=== PATIENT | male | born 1980 | race Caucasian/White ===

== ENCOUNTER 2018-05-07 08:43 | Emergency (ER) | payer BC ==
[~2018-05-07] VITALS: Ht 1737 cm; Wt 81.6 kg
[~2018-05-07 08:43] MED LIST: AMARYL4 MG PO; AZULFIDINE500 MG PO; CRESTOR20 MG PO; CYCLOBENZAPRINE10 MG PO; DAYPRO600 M1 PO; FOLIC ACID1 MG PO; GLUCOPHAGE500 MG PO; HYDROCODONE BIT1 T11 PO; METFORMIN1000 MG PO; MOTRIN800 MG PO; PERCOCET 325 MG1 TA2 PO; ROBAXIN750 MG PO; TOBRADEX 0.1%-0.5 ML OPH; ULTRAM50 MG PO; ZITHROMAX250 MG PO
[2018-05-07] MEDS ORDERED: SEPTDS PO (12:02)
== END 2018-05-07 12:01 | disposition home or self-care (01) ==
LOC: ED 08:43
DX: S61.213A Laceration without foreign body of left middle finger without damage to nail, initial encounter (principal); Z88.0 Allergy status to penicillin; Z88.1 Allergy status to other antibiotic agents; W45.8XXA Other foreign body or object entering through skin, initial encounter; Y93.89 Activity, other specified; Y92.89 Other specified places as the place of occurrence of the external cause; Y99.8 Other external cause status

== ENCOUNTER 2018-07-10 08:23 | Emergency (ER) | payer SELFPAY ==
[~2018-07-10] VITALS: Ht 177.8 cm; Wt 79.4 kg
[~2018-07-10 08:23] MED LIST changes: +SEPTDS PO
[2018-07-10] MEDS ORDERED: FLONASE ALLERG9.9 ML NAS (10:47)
[2018-07-10] MEDS ORDERED: CLINDAMYCIN HC300 MG PO (10:47)
[2018-07-10] MEDS ORDERED: ZYRTEC10 MG PO (10:48)
[2018-07-10] MEDS ORDERED: NAPROSYN500 MG PO (10:48)
== END 2018-07-10 11:17 | disposition home or self-care (01) ==
LOC: ED 08:23
DX: J01.90 Acute sinusitis, unspecified (principal); K04.7 Periapical abscess without sinus; F17.200 Nicotine dependence, unspecified, uncomplicated; Z88.0 Allergy status to penicillin; Z88.1 Allergy status to other antibiotic agents